=== PATIENT | female | born 1980 | race Caucasian/White ===

== ENCOUNTER 2017-10-09 09:31 | Outpatient (CLI) | payer MEDICARE ==
[2017-10-09] MEDS ORDERED: Gadobenate Dimeglumine 529 MG/1 ML (20ML VIAL) ONE (15:16)
== END 2017-10-09 09:32 | disposition home or self-care (01) ==
LOC: BICMRI 09:31
PROVIDERS: ATTEND Psychiatry & Neurology Neurology
DX: R56.9 Unspecified convulsions (principal)
CPT/HCPCS: 70553; A9579

== ENCOUNTER 2018-04-30 13:49 | Outpatient (CLI) | payer MEDICARE ==
--- NOTE | 2018-04-30 14:51 | ULT ---
BLADDER ULTRASOUND: Comparison: None. History: Pelvic pain and difficulty emptying urinary bladder. Technique: Multiplanar grayscale and color doppler images were obtained in a limited ultrasound of th e pelvis to include the urinary bladder. FINDINGS: Pre-void bladder volume is 112 ml. No significant bladder abnormality is seen. The bladder was comple tely empty after voiding. IMPRESSION: No significant bladder abnormality. POS: [facility]
--- NOTE | 2018-04-30 15:28 | ULT ---
TRANSVAGINAL PELVIC ULTRASOUND: INDICATION: History of left-sided pelvic pain with a history of hysterectomy and right oophorectomy. TECHNIQUE: Daniels scale, color flow, with spectral Doppler images were obtained of the pelvis via transvaginal maryann salazar. FINDINGS: Uterus and right ovary are surgically absent. The left ovary measures 3.3 x 2.7 x 2.3 cm. There is a bilobed cyst within the left ovary measuring 1.5 x 1.9 x 1.5 cm. The distal portion of the cyst measures 1.7 x 2.3 x 1.5 cm. There is normal milan w to the left ovary. IMPRESSION: Bilobed cyst within the left ovary. Would recommend a followup ultrasound in 6-8 weeks to document r esolution. POS: [facility]
== END 2018-04-30 13:50 | disposition home or self-care (01) ==
LOC: BICULT 13:49
PROVIDERS: ATTEND Nurse Practitioner Family
DX: E28.2 Polycystic ovarian syndrome (principal); R30.9 Painful micturition, unspecified; R30.0 Dysuria
CPT/HCPCS: 76856

== ENCOUNTER 2018-06-03 08:26 | Outpatient (CLI) | payer MEDICARE ==
[2018-06-03] MEDS ORDERED: ISOVUE-370 76%-LOCM 1 ML ONE (09:22)
--- NOTE | 2018-06-03 10:26 | CT ---
CT PELVIS WITH IV CONTRAST: Multiple axial tomograms were obtained through the pelvis with IV contrast. Oral contrast was also a dministered. INDICATION: History of left ovary cyst. Dysuria. COMPARISON: Comparison is made to prior abdomen and pelvis CT of 03/12/2017. Correlation is made to a recent pelvi c ultrasound of 04/30/2018. The recent ultrasound described a bilobed left ovarian cyst measuring 1.5 to [address] revealed a left ovarian cyst measuring up to 3 cm. FINDINGS: Portions of the kidneys are imaged and appear unremarkable and stable. No hydronephrosis. The urete rs appear normal. The urinary bladder is mildly distended and appears unremarkable. The patient is post hysterectomy. The left ovary is again identified. A small left ovarian cyst is seen measuring approximately 1.5 cm in the coronal plane. The right ovary is not identified. The visualized aorta is unremarkable. No adenopathy identified. Osseous structures unremarkable. T he sigmoid and visualized left colon unremarkable. IMPRESSION: A small left ovarian cyst measuring approximately 1.[address] pelvis otherwise unrema rkable. POS: [facility]
== END 2018-06-03 08:27 | disposition home or self-care (01) ==
LOC: BICCT 08:26
PROVIDERS: ATTEND Nurse Practitioner Family
DX: N83.202 Unspecified ovarian cyst, left side (principal); R30.9 Painful micturition, unspecified; R30.0 Dysuria; E28.2 Polycystic ovarian syndrome; R10.2 Pelvic and perineal pain
CPT/HCPCS: 72193; Q9966

== ENCOUNTER 2018-10-23 14:37 | Outpatient (CLI) | payer MEDICARE ==
[2018-10-23 16:53] LABS: Hemoglobin 13.5 g/dL (12.0-16.0); Mean Corpuscular HGB CONC 34.6 g/dL (32.0-36.0); Mean Corpuscular Hemoglobin 33.9 pg (27.0-31.0); Mean Corpuscular Volume 98.1 fL (78.0-98.0); Mean Platelet Volume 7.6 fL (7.4-10.4); Platelet Count 304 thou/uL (130-400); RBC Distribution Width 11.2 % (11.5-14.5); Red Blood Cell (RBC) Count 3.97 mill/uL (4.20-5.40); White Blood Cell (WBC) Count 9.1 thou/uL (4.8-10.8)
== END 2018-10-23 14:38 | disposition home or self-care (01) ==
LOC: LABBT 14:37
PROVIDERS: ATTEND Obstetrics & Gynecology
DX: Z01.812 Encounter for preprocedural laboratory examination (principal); N83.202 Unspecified ovarian cyst, left side
CPT/HCPCS: 85027; 86850; 86900; 86901; 93005; 93010

== ENCOUNTER 2018-10-28 08:31 | Day surgery (SDC) | payer MEDICARE ==
[2018-10-23 16:44] VITALS: BMI 32.4
--- NOTE | 2018-10-27 09:26 | HP ---
Ayde is set for outpatient surgery on 10/28. HISTORY OF PRESENT ILLNESS: Ayde is a 38-year-old white female G0, well known to me with previous robotic hysterectomy and right salpingo-oophorectomy approximately 10 years ago. She has been having a long history of left lower quadrant pain. She reports the last year it has gotten much more severe, progressively worsening, constant, sharp and stabbing in character. It will radiate to the mons pubis region. She has been requiring tramadol 50 mg twice a day without relief. She has seen her Primary Care Provider and General Surgery due to prior left inguinal hernia repair. She is also getting pain injections with Anesthesia Service with Dr. Los Ibrahim and trigger point injections, which does help some of the pain, but then it recurs about 2 weeks after and returns. As noted, she has a history of total laparoscopic hysterectomy with right salpingo-oophorectomy in the past for cervical dysplasia and right ovarian cyst. She has a history of PCOS, on metformin. She has been noted to have a persistent 3 to 4 cm left ovarian cyst with mild septation over the past year. It has been unchanged. Due to the persistence of the cyst and the patient's chronic pain issues, now she is desiring definitive surgical therapy with removal of the ovarian cyst. PAST MEDICAL HISTORY: She has spinal stenosis, onset 09/23/2018, migraine history, seizure history/epilepsy, hypertensive disorder, diabetes mellitus, hypothyroidism, chronic pelvic pain and ovarian cyst. PAST SURGICAL HISTORY: Robotic TLH with RSO, cholecystectomy in 2013, hernia repair for left-sided congenital hernia in [address] Nielson. FAMILY HISTORY: Father had hypertensive disease and [place]. Mother had hyperlipidemia, heart disease. Distant maternal aunt, diabetes and malignant breast cancer at age 55. CURRENT MEDICATIONS: 1. Alprazolam 0.5 mg tablet as needed. 2. Aspirin 81 mg daily. 3. Baclofen 10 mg b.i.d. 4. Celebrex mg daily. 5. Lisinopril 2.5 mg daily. 6. Metformin 500 mg tablet daily. 7. Pravastatin 40 mg tablet daily. 8. Sertraline 100 mg tablet daily. 9. Synthroid 125 mcg tablet daily. 10. Topamax 50 mg tablet daily. 11. Tramadol 50 b.i.d. as needed. PHYSICAL EXAMINATION: VITAL SIGNS: The patient's height is 5 feet 6 inches, weight 199, BMI 32, blood pressure 118/78, pulse 90, respirations 18, O2 saturation 96% on room air. HEENT: Within normal limits. CHEST: Clear to auscultation. HEART: Regular rate and rhythm. S1 and S2 heart sounds. No murmurs, rubs, or gallops. ABDOMEN: Inspection and palpation, there is no guarding. No masses. No rebound tenderness. Soft, nondistended. There was some left lower quadrant tenderness. PELVIC: Vulva and vagina had no lesions. Vaginal cuff was intact. Cervix was absent surgically. Uterus is surgically absent. Adnexa, no adnexal masses, but some tenderness was appreciated. ASSESSMENT: This is a 38-year-old white female with chronic pelvic pain with prior robotic total laparoscopic hysterectomy with right salpingo-oophorectomy. She is having persistent left lower quadrant pain with evidence of a left ovarian or adnexal cyst. This has been stable for many years and in fact over the past year and has noted in the past to be present. She has other chronic pelvic pain issues also. Due to the persistence of the pain and the cyst, now we have decided to proceed with robotic laparoscopic salpingo-oophorectomy. The patient is aware that her pain may persist even after removal of the left ovary and the cyst. She will require hormone replacement therapy and most likely take in oral form after discussion with her and her mother. PLAN: Plan is to proceed with robotic LSO on 10/28/2018. Risks and benefits of procedure discussed in detail. Job ID: [id number]
[2018-10-28] MEDS ORDERED: Gabapentin 300 MG CAP ONE (09:06)
[2018-10-28] MEDS ORDERED: Famotidine/PF 20 mg/2ml Vial ONE ×2 (09:07→09:08)
[2018-10-28] MEDS ORDERED: CeleCOXIB 100 MG CAP ONE ×2 (09:08→09:20)
[2018-10-28] MEDS ORDERED: Bupivacaine HCl 0.5%/Epinephrine 1:200,000/PF 30 ml Vial ONE (09:27)
[2018-10-28] MEDS ORDERED: Fentanyl 100 MCG/2 ML VIAL ONE ×2 (09:32→11:57)
[2018-10-28] MEDS ORDERED: HYDROcodone/Acetaminophen 5/325 mg Tablet ONE (14:06)
--- NOTE | 2018-10-28 15:41 | OP ---
DATE OF PROCEDURE: 10/28/2018 PREOPERATIVE DIAGNOSES: 1. A 38-year-old white female, G0, prior robotic hysterectomy and right salpingo-oophorectomy with chronic pelvic pain. 2. Persistent 3-cm left ovarian cyst. POSTOPERATIVE DIAGNOSES: 1. A 38-year-old white female, G0, prior robotic hysterectomy and right salpingo-oophorectomy with chronic pelvic pain. 2. Persistent 3-cm left ovarian cyst. 3. Pelvic adhesive disease. NEIGHBORHOOD PLANNER SURGEON: Gloria Cabrera PA-C ANESTHESIA: General endotracheal. ESTIMATED BLOOD LOSS: Less than 25 mL. COMPLICATIONS: None. COUNTS: Correct x2. ANTIBIOTICS: 2 g Ancef, on-call to OR. PATHOLOGY: Left fallopian tube and ovary. FINDINGS: 1. Left adnexal structures were basically nestled in bowel adhesions from some small and large bowel on the patient's left side of the pelvis. These were all some filmy adhesions from previous surgeries. 2. The left fallopian tube was normal in appearance, and the left ovary was approximately 3 to 4 cm in size with what appeared to be a 1.5-cm simple cyst that was ruptured with clear fluid. 3. Otherwise, the patient was status post prior robotic hysterectomy and RSO. She had a few omental adhesions underneath the umbilicus, which did not appear incarcerated. The bowel adhesions did not appear to be strangulated or narrowed causing any sort of obstructive pattern. DISPOSITION: Recovery room, stable. DESCRIPTION OF PROCEDURE: The patient previously received informed consent in regard to surgery. Taken back to the operating room, where she received a general endotracheal anesthetic agent without complications. Placed in a dorsal lithotomy position with use of Nacho stirrups. A sponge stick was placed in the vagina along with Lombardo catheter. Attention was then turned to the abdomen. Perspective trocar sites were infiltrated with 0.5% Marcaine with epinephrine. An infraumbilical incision was made, and then Veress needle was attempted to be placed intraperitoneally x3. There was an elevated reading over 15 mmHg pressure on each insert and felt that there may be adhesions in the umbilicus region. We, therefore, had 2 Allis clamps grasped the fascia. The fascia was incised approximately a centimeter. There was quite a bit of grisly texture here again consistent with adhesions, and I was unable to get into the peritoneal cavity. I was just under the fascia, which allowed for me to pull the fascial wall up towards me, and then we went above the umbilicus approximately 5 cm. A midline incision was made approximately 10 mm. Veress needle was entered here with elevation of the anterior abdominal wall, and the patient's pressure was noted to be less than 5, and the abdomen was insufflated to the patient's pressure of 15 with approximately 5 L of carbon dioxide gas. A size 11-mm trocar was then placed through this incision site, and then the robotic laparoscope was introduced through the trocar sleeve confirming proper entry. We then noted where we initially had tried to go in, in the fascia, there were some omental adhesions in this area explaining the inability to enter in with visualization on the first Veress needle insert. An 8-mm trocar robotic was placed bilaterally, right and left side, under direct visualization, and then we placed a 5-mm right upper quadrant insurance administrative assistant port. The patient was placed in Trendelenburg position, and then the robot was docked in usual fashion. Then, we did explore into the pelvis with the bowel adhesions. They were taken down both sharply and bluntly with use of monopolar scissors and bipolar fenestrated cautery, and my insurance administrative assistant with an atraumatic grasper, we did layering of the filmy adhesions mobilizing the bowel that was pretty much adherent to the left pelvic sidewall. To be continued, we atraumatically went through the adhesions. This allowed for mobilization of the colon in sigmoid region; therefore, finding the left adnexal structure just tucked underneath these adhesions. My insurance administrative assistant grasped the identifiable fallopian tube and pulled this medially. This allowed for me to dissect the filmy adhesions from the sigmoid colon off the ovary both sharply and bluntly freeing up the left ovary. We then took a part of the fallopian tube off with monopolar scissors and brought that down into pelvic cul-de-sac freeing up more of the left IP ligament well from the pelvic sidewall. My insurance administrative assistant then retracted the bowel laterally away from the IP ligament, and then hugging up close to the ovarian specimen and grasping the ovary medially, I was able to put the bipolar fenestrated hugging up close to the ovary and the IP ligament, cauterized this x2, and then excised with monopolar scissors removing the adnexal structures. The pelvis then again was inspected, and hemostasis was confirmed. We then undocked the robot. We got an endobag placed through the supraumbilical port and then switched the 8-mm camera to the patient's left lower quadrant scope. The endobag was then utilized to scoop up the tube and ovary, and these were suture closed and secured. I then closed the fascial defect that I made in the umbilicus under pressure which allowed for better grasping the fascia, and 2 [id number] sutures were placed in this closing the defect. The specimen was then secured in the bag, and it was easily pulled out through the 11-mm defect in the supraumbilical region. Once this was done, then the excess carbon dioxide gas had been released from the abdomen. Hemostasis again was confirmed. The trocar sites were closed with 4-0 Monocryl and Dermabond. Sponge stick was removed. The patient was awakened from anesthesia and transferred to recovery room in stable condition. Job ID: [id number]
[2018-10-28] MEDS ORDERED: Glycopyrrolate 0.2 MG/ML 5 ML SYRINGE ONE (17:08)
[2018-10-28] MEDS ORDERED: Ondansetron PF 4 MG/2 ML Vial ONE (17:08)
[2018-10-28] MEDS ORDERED: Rocuronium Bromide 10 MG/ML (10ML VIAL) ONE (17:08)
[2018-10-28] MEDS ORDERED: Ketorolac Tromethamine 30 MG/ML VIAL ONE (17:08)
[2018-10-28] MEDS ORDERED: PHENYLEPHRINE-NS 100 MCG/ML 10 ML SYRINGE ONE (17:08)
[2018-10-28] MEDS ORDERED: PROPOFOL 200 MG/20 ML VIAL ONE (17:08)
[2018-10-28] MEDS ORDERED: Dexamethasone 20 MG/5 ML VIAL ONE (17:08)
[2018-10-28] MEDS ORDERED: Lidocaine 1% PF 5 ML VIAL ONE (17:08)
== END 2018-10-28 14:15 | disposition home or self-care (01) ==
LOC: SDC 08:31
PROVIDERS: ATTEND Obstetrics & Gynecology
PROC: 0UT14ZZ Resection of Left Ovary, Percutaneous Endoscopic Approach (ICD-10-PCS; principal; 2018-10-28)
PROC: 0UT64ZZ Resection of Left Fallopian Tube, Percutaneous Endoscopic Approach (ICD-10-PCS; 2018-10-28)
DX: N83.02 Follicular cyst of left ovary (principal); N83.8 Other noninflammatory disorders of ovary, fallopian tube and broad ligament; N73.6 Female pelvic peritoneal adhesions (postinfective); G89.29 Other chronic pain; R10.2 Pelvic and perineal pain; E11.9 Type 2 diabetes mellitus without complications; E03.9 Hypothyroidism, unspecified; I10 Essential (primary) hypertension; F41.9 Anxiety disorder, unspecified; F32.9 Major depressive disorder, single episode, unspecified; E78.5 Hyperlipidemia, unspecified; G40.909 Epilepsy, unspecified, not intractable, without status epilepticus; G43.909 Migraine, unspecified, not intractable, without status migrainosus; Z90.710 Acquired absence of both cervix and uterus; Z90.49 Acquired absence of other specified parts of digestive tract; Z79.82 Long term (current) use of aspirin; Z79.899 Other long term (current) drug therapy; Z79.84 Long term (current) use of oral hypoglycemic drugs
CPT/HCPCS: 88305; J0670; J0690; J1100; J1885; J2001; J2405; J2704; J3010; S0028

== ENCOUNTER 2020-03-06 17:05 | Emergency (ER) | payer MEDICARE ==
[2020-03-06 18:28] LABS: Bilirubin Negative (Negative); Blood, Urine Trace (Negative); Clarity Clear (Clear); Glucose, Urine (Dipstick) Normal (Negative); Ketone, Urine Negative (Negative); Leukocyte Negative Leu/uL (Negative); Nitrite Negative (Negative); Protein, Urine (Dipstick) Negative (Neg-Trace); RBC/HPF 0-3 HPF (0-3); Specific Gravity, Urine 1.006 (1.002-1.036); Urobilinogen Normal mg/dL (Less than 2); WBC/HPF 0-3 HPF (0-3); pH, Urine 6.5 (5.0-9.0)
[2020-03-06 18:29] LABS: Bacteria/HPF 1+ HPF (None Seen)
== END 2020-03-06 19:19 | disposition home or self-care (01) ==
LOC: ERS 17:05
DX: B37.2 Candidiasis of skin and nail (principal); E03.9 Hypothyroidism, unspecified; Z79.82 Long term (current) use of aspirin; Z79.899 Other long term (current) drug therapy
CPT/HCPCS: 36416; 81001; 87086; 99283

== ENCOUNTER 2020-06-02 11:12 | Outpatient (CLI) | payer MEDICARE | END 2020-06-02 11:13 | disposition home or self-care (01) | LOC: CT 11:12 | PROVIDERS: ATTEND Psychiatry & Neurology Neurology | DX: G40.909 Epilepsy, unspecified, not intractable, without status epilepticus (principal) | CPT/HCPCS: 70450; 95816 ==

== ENCOUNTER 2020-12-26 12:23 | Outpatient (CLI) | payer MEDICARE | END 2020-12-26 12:24 | disposition home or self-care (01) | LOC: BICMAMMO 12:23 | PROVIDERS: ATTEND Obstetrics & Gynecology | DX: Z12.31 Encounter for screening mammogram for malignant neoplasm of breast (principal); Z80.3 Family history of malignant neoplasm of breast | CPT/HCPCS: 77063; 77067 ==

== ENCOUNTER 2021-01-12 10:19 | Outpatient (CLI) | payer MEDICARE | END 2021-01-12 10:20 | disposition home or self-care (01) | LOC: BICMRI 10:19 | PROVIDERS: ATTEND Orthopaedic Surgery | DX: M23.92 Unspecified internal derangement of left knee (principal) ==

== ENCOUNTER 2021-07-06 11:07 | Emergency (ER) | payer MEDICARE ==
[2021-07-06 12:15] LABS: Hemoglobin 14.7 g/dL (12.0-16.0); Mean Corpuscular HGB CONC 34.1 g/dL (32.0-36.0); Mean Corpuscular Hemoglobin 35.2 pg (27.0-31.0); Mean Platelet Volume 7.6 fL (7.4-10.4); Platelet Count 272 thou/uL (130-400); RBC Distribution Width 11.9 % (11.5-14.5); Red Blood Cell (RBC) Count 4.17 mill/uL (4.20-5.40); White Blood Cell (WBC) Count 17.2 thou/uL (4.8-10.8)
[2021-07-06] MEDS ORDERED: Morphine 4 MG/ML VIAL ONE (12:29)
[2021-07-06] MEDS ORDERED: Ondansetron PF 4 MG/2 ML Vial ONE (12:29)
[2021-07-06 12:45] LABS: ALT (SGPT) 19 U/L (8-55); AST (SGOT) 19 U/L (5-34); Albumin 3.9 g/dL (3.5-5.0); Alkaline Phosphatase 65 U/L (40-110); Anion Gap 19 mmol/L (10-20); BUN (Urea Nitrogen) 19 mg/dL (7.0-18.7); Band 1 % (5-11); Bilirubin, Total 0.3 mg/dL (0.2-1.2); Calc. Creatinine Clearance 0 mL/min (70-130); Calcium 9.4 mg/dL (7.8-10.44); Carbon Dioxide 15 mmol/L (22-29); Chloride 107 mmol/L (98-107); Globulin 3.5 g/dL (2.4-3.5); Glucose 119 mg/dL (70-105); Lipase 43 U/L (8-78); Lymphocytes 30 % (21-51); MDiff Complete? YES; Monocytes 5 % (0-10); Neutrophil 62 % (42-75); Platelet Morphology Comment Appears Adequate; Potassium 4.8 mmol/L (3.5-5.1); Protein, Total 7.4 g/dL (6.0-8.3); RBC Morphology Normal; Sodium 136 mmol/L (136-145)
[2021-07-06 13:37] LABS: Bilirubin Negative (Negative); Blood, Urine Negative (Negative); Clarity Clear (Clear); Glucose, Urine (Dipstick) Normal (Negative); Ketone, Urine Negative (Negative); Leukocyte Negative Leu/uL (Negative); Nitrite Negative (Negative); Protein, Urine (Dipstick) Negative (Neg-Trace); Specific Gravity, Urine 1.012 (1.002-1.036); Urobilinogen Normal mg/dL (Less than 2); pH, Urine 5.5 (5.0-9.0)
[2021-07-06] MEDS ORDERED: Ketorolac Tromethamine 30 MG/ML VIAL ONE (14:25)
== END 2021-07-06 14:58 | disposition home or self-care (01) ==
LOC: ERS 11:07
DX: N13.2 Hydronephrosis with renal and ureteral calculous obstruction (principal); E03.9 Hypothyroidism, unspecified; G43.909 Migraine, unspecified, not intractable, without status migrainosus; Z79.899 Other long term (current) drug therapy; Z79.84 Long term (current) use of oral hypoglycemic drugs
CPT/HCPCS: 36415; 74176; 80053; 81003; 83690; 85025; 87086; 94760; 96374; 96375; J1885; J2270; J2405

== ENCOUNTER 2021-07-12 09:59 | Observation (INO) | payer MEDICARE ==
[2021-07-12] MEDS ORDERED: Ondansetron PF 4 MG/2 ML Vial ONE (10:58)
[2021-07-12] MEDS ORDERED: Morphine 4 MG/ML VIAL ONE (10:58)
[2021-07-12] MEDS ORDERED: Ketorolac Tromethamine 30 MG/ML VIAL ONE (10:58)
[2021-07-12 11:05] LABS: Bilirubin Negative (Negative); Blood, Urine Negative (Negative); Clarity Clear (Clear); Glucose, Urine (Dipstick) Normal (Negative); Ketone, Urine Negative (Negative); Leukocyte Negative Leu/uL (Negative); Nitrite Negative (Negative); Protein, Urine (Dipstick) Negative (Neg-Trace); Specific Gravity, Urine 1.016 (1.002-1.036); Urobilinogen Normal mg/dL (Less than 2)
[2021-07-12 11:26] LABS: #Basophils 0.1 thou/uL (0.0-0.2); #Eosinphils 0.2 thou/uL (0.0-0.7); #Lymphocytes 3.7 thou/uL (1.20-3.40); #Monocytes 0.5 thou/uL (0.11-0.59); #Neutrophils 8.6 thou/uL (1.40-6.50); %Basophils 1.1 % (0.0-1.0); %Eosinophils 1.2 % (0.0-10.0); %Monocytes 3.7 % (0.0-10.0); Hemoglobin 13.1 g/dL (12.0-16.0); Mean Corpuscular HGB CONC 33.6 g/dL (32.0-36.0); Mean Corpuscular Hemoglobin 34.2 pg (27.0-31.0); Mean Platelet Volume 7.1 fL (7.4-10.4); Platelet Count 292 thou/uL (130-400); RBC Distribution Width 11.8 % (11.5-14.5); Red Blood Cell (RBC) Count 3.83 mill/uL (4.20-5.40)
[2021-07-12 11:47] LABS: ALT (SGPT) 18 U/L (8-55); AST (SGOT) 12 U/L (5-34); Albumin 3.7 g/dL (3.5-5.0); Alkaline Phosphatase 62 U/L (40-110); Anion Gap 14 mmol/L (10-20); BUN (Urea Nitrogen) 15 mg/dL (7.0-18.7); Bilirubin, Total 0.3 mg/dL (0.2-1.2); Calc. Creatinine Clearance 0 mL/min (70-130); Calcium 9.1 mg/dL (7.8-10.44); Carbon Dioxide 21 mmol/L (22-29); Chloride 108 mmol/L (98-107); Globulin 3.2 g/dL (2.4-3.5); Glucose 186 mg/dL (70-105); Lipase 54 U/L (8-78); Potassium 3.7 mmol/L (3.5-5.1); Protein, Total 6.9 g/dL (6.0-8.3); Sodium 139 mmol/L (136-145)
[2021-07-12] MEDS ORDERED: diphenhydrAMINE 50 MG/ML VIAL IVP PRN (12:01)
[2021-07-12] MEDS ORDERED: Zolpidem Tartrate 5 MG TAB PO PRN (12:01)
[2021-07-12] MEDS ORDERED: Morphine 4 MG/ML VIAL SLOW IVP PRN (12:01)
[2021-07-12] MEDS ORDERED: Oxybutynin 5 MG TAB PO PRN (12:01)
[2021-07-12] MEDS ORDERED: hydrALAZINE 20 MG/ML VIAL SLOW IVP PRN (12:01)
[2021-07-12 13:26] LABS: SARS-CoV-2 NAA Rapid Test Not Detected (NotDetected)
[2021-07-12 13:37] VITALS: BMI 31.6
[2021-07-12] MEDS: HYDROcodone/Acetaminophen 5/325 mg Tablet PO PRN (14:09)
[2021-07-12] MEDS: Sodium Chloride 0.9% 1,000 ML IV SCH ×2 (14:12→20:59)
[2021-07-12] MEDS ORDERED: Iopamidol 30 ML ONE (18:34)
[2021-07-12] MEDS: Ketorolac Tromethamine 30 MG/ML VIAL IVP SCH (18:42)
[2021-07-12] MEDS ORDERED: Levofloxacin 500 mg/D5W 100 ml Premix Bag ONE (18:48)
[2021-07-12] MEDS ORDERED: PROPOFOL 200 MG/20 ML VIAL ONE (18:58)
[2021-07-12] MEDS ORDERED: Lidocaine 1% PF 5 ML VIAL ONE (18:58)
[2021-07-12] MEDS ORDERED: Ondansetron HCl/PF 4 MG/2 ML Vial IVP PRN (19:28)
[2021-07-12] MEDS ORDERED: Promethazine HCl 25 MG/ML VIAL IM PRN (19:28)
[2021-07-12] MEDS ORDERED: Promethazine HCl 25 MG/ML VIAL IVPB PRN (19:28)
[2021-07-12] MEDS ORDERED: Fentanyl 100 MCG/2 ML VIAL ONE (19:31)
[2021-07-12] MEDS ORDERED: ALPRAZolam 0.5 MG TAB PO PRN (19:33)
[2021-07-12] MEDS: Topiramate 100 MG TAB PO SCH (20:53)
[2021-07-12] MEDS: Baclofen 10 MG TAB PO SCH (20:53)
[2021-07-12] MEDS: Famotidine/PF 20 mg/2ml Vial SLOW IVP SCH (20:54)
[2021-07-12] MEDS ORDERED: Atorvastatin Calcium 10 MG TAB PO SCH (21:00)
[2021-07-13] MEDS: Ketorolac Tromethamine 30 MG/ML VIAL IVP SCH ×2 (00:23→05:52)
[2021-07-13] MEDS ORDERED: Levothyroxine Sodium 125 MCG TAB PO SCH (06:00)
[2021-07-13] MEDS ORDERED: metFORMIN 500 MG TAB PO SCH (08:00)
[2021-07-13] MEDS: Baclofen 10 MG TAB PO SCH (08:19)
[2021-07-13] MEDS: Sodium Chloride 0.9% 1,000 ML IV SCH (08:19)
[2021-07-13] MEDS: Famotidine/PF 20 mg/2ml Vial SLOW IVP SCH (08:19)
[2021-07-13] MEDS: Lisinopril 2.5 MG TAB PO SCH ×2 (08:19→08:40)
[2021-07-13] MEDS: Topiramate 100 MG TAB PO SCH (08:20)
[2021-07-13] MEDS: HYDROcodone/Acetaminophen 5/325 mg Tablet PO PRN (08:40)
[2021-07-13 08:43] VITALS: BP 117/77; TEMP 97.9
[2021-07-13] MEDS ORDERED: Tamsulosin HCl 0.4 MG CAP PO SCH (09:00)
[2021-07-13] MEDS ORDERED: Aspirin 81 mg Enteric Coated Tablet PO SCH (09:00)
[2021-07-17 17:38] LABS: CA Oxalate Dihydrate 60 % (.); CA Oxalate Monohydrate 30 % (.); Color Tan (.); Stone Weight 18 mg (.)
== END 2021-07-13 09:58 | disposition home or self-care (01) ==
LOC: ERS 09:59 → SURG A 12:07
PROVIDERS: ADMIT Urology; ATTEND Urology
PROC: 0TC78ZZ Extirpation of Matter from Left Ureter, Via Natural or Artificial Opening Endoscopic (ICD-10-PCS; principal; 2021-07-12)
PROC: 0T778DZ Dilation of Left Ureter with Intraluminal Device, Via Natural or Artificial Opening Endoscopic (ICD-10-PCS; 2021-07-12)
DX: N13.2 Hydronephrosis with renal and ureteral calculous obstruction (principal); N13.4 Hydroureter; E03.9 Hypothyroidism, unspecified; G40.909 Epilepsy, unspecified, not intractable, without status epilepticus; Z79.82 Long term (current) use of aspirin; Z79.84 Long term (current) use of oral hypoglycemic drugs; Z79.890 Hormone replacement therapy; Z79.899 Other long term (current) drug therapy; Z88.0 Allergy status to penicillin; Z20.822 Contact with and (suspected) exposure to COVID-19
CPT/HCPCS: 52356; 71045; 74176; 74420; 81003; 82365; 83690; 93005; 96374; 96375; 99285; C2617; U0002; 36415; 80053; 84443; 85025; 88300; 96376; G0378; J1885; J1956; J2270; J2405; J2704; J3010; J7050; Q9967; S0028

== ENCOUNTER 2021-08-09 12:29 | Outpatient (CLI) | payer MEDICARE | END 2021-08-09 12:30 | disposition home or self-care (01) | LOC: BICULT 12:29 | PROVIDERS: ATTEND Urology | DX: N20.0 Calculus of kidney (principal) | CPT/HCPCS: 76770 ==

== ENCOUNTER 2021-08-25 09:59 | Outpatient (CLI) | payer MEDICARE ==
[2021-08-25 10:46] LABS: Estimated GFR-MDRD - POC Greater than 90
== END 2021-08-25 10:00 | disposition home or self-care (01) ==
LOC: BICCT 09:59
PROVIDERS: ATTEND Urology
DX: R10.32 Left lower quadrant pain (principal); N20.0 Calculus of kidney
CPT/HCPCS: 74177; 82565

== ENCOUNTER 2021-09-11 13:45 | Outpatient (CLI) | payer MEDICARE ==
[2021-09-11] MEDS ORDERED: Magnevist 469MG/ML 20 ML VIAL ONE (15:57)
== END 2021-09-11 13:46 | disposition home or self-care (01) ==
LOC: BICMRI 13:45
PROVIDERS: ATTEND Nurse Practitioner Family
DX: R10.32 Left lower quadrant pain (principal); Z87.442 Personal history of urinary calculi; E28.2 Polycystic ovarian syndrome; J84.10 Pulmonary fibrosis, unspecified
CPT/HCPCS: 74183; A9579

== ENCOUNTER 2021-11-23 12:55 | Outpatient (CLI) | payer MEDICARE | END 2021-11-23 12:56 | disposition home or self-care (01) | LOC: BICCT 12:55 | PROVIDERS: ATTEND Urology | DX: N20.0 Calculus of kidney (principal) | CPT/HCPCS: 74176; 81001; 87086 ==

== ENCOUNTER 2021-12-26 09:15 | Outpatient (CLI) | payer MEDICARE ==
[2021-12-26 11:37] LABS: Bilirubin Neg (Negative); Blood, Urine Negative (Negative); Clarity Sl. Cloudy (Clear); Glucose, Urine (Dipstick) Normal (Negative); Ketone, Urine Negative (Negative); Leukocyte 25 (Negative); Nitrite Negative (Negative); Protein, Urine (Dipstick) Negative (Neg-Trace); Specific Gravity, Urine 1.015 (1.005-1.030); Urobilinogen Normal mg/dL (Less than 2); pH, Urine 6.5 (5.0-9.0)
[2021-12-26 11:52] LABS: Hemoglobin 14.2 g/dL (12.0-15.5); Mean Corpuscular Hemoglobin 34.3 pg (27.0-33.0); Platelet Count 311 10x3/uL (150-450); RBC Distribution Width 12.5 % (11.5-14.5); Red Blood Cell (RBC) Count 4.14 10x6/uL (3.90-5.03); White Blood Cell (WBC) Count 9.9 10x3/uL (3.5-10.5)
[2021-12-26 11:54] LABS: RBC/HPF 0-3 HPF (0-3)
[2021-12-26 11:55] LABS: Bacteria/HPF 2+ HPF (None Seen); Mucous/LPF 1+ LPF (<2+); Oval Fat Bodies/HPF Rare HPF (None Seen)
[2021-12-26 12:06] LABS: INR-International Normal Ratio 0.9; PTT 26.9 sec (22.0-33.0); Prothrombin Time 10.2 sec (9.5-12.1)
[2021-12-26 12:17] LABS: Anion Gap 15 mmol/L (10-20); BUN (Urea Nitrogen) 18 mg/dL (7.0-18.7); Calc. Creatinine Clearance 0 mL/min (70-130); Calcium 9.7 mg/dL (7.8-10.44); Carbon Dioxide 21 mmol/L (22-29); Chloride 108 mmol/L (98-107); Estimated GFR 80; Glucose 199 mg/dL (70-105); Sodium 140 mmol/L (136-145)
== END 2021-12-26 09:16 | disposition home or self-care (01) ==
LOC: LABBT 09:15
PROVIDERS: ATTEND Urology
DX: Z01.818 Encounter for other preprocedural examination (principal); N20.0 Calculus of kidney
CPT/HCPCS: 80048; 81001; 85027; 85610; 85730; 87086; 93005; 93010

== ENCOUNTER 2021-12-29 08:52 | Day surgery (SDC) | payer MEDICARE ==
[2021-12-28 11:05] VITALS: BMI 31.6
[2021-12-29] MEDS ORDERED: Levofloxacin 500 mg/D5W 100 ml Premix Bag ONE (09:58)
[2021-12-29] MEDS ORDERED: Midazolam HCl 2 mg/2 ml Vial ONE (11:08)
[2021-12-29] MEDS ORDERED: Ketamine 50 MG/ML (10ML VIAL) ONE (11:08)
[2021-12-29] MEDS ORDERED: fentaNYL Citrate/PF 100 MCG/2 ML SYRINGE ONE (11:08)
[2021-12-29] MEDS ORDERED: SUGAMMADEX SODIUM 200 MG/2 ML VIAL ONE (11:09)
[2021-12-29] MEDS ORDERED: PROPOFOL 200 MG/20 ML VIAL ONE (11:20)
[2021-12-29] MEDS ORDERED: Rocuronium Bromide 10 MG/ML (10ML VIAL) ONE (11:20)
[2021-12-29] MEDS ORDERED: ePHEDrine 50 MG/ML VIAL ONE (11:20)
[2021-12-29] MEDS ORDERED: PHENYLEPHRINE-NS 100 MCG/ML 10 ML SYRINGE ONE (11:20)
[2021-12-29] MEDS ORDERED: Ondansetron PF 4 MG/2 ML Vial ONE (11:20)
[2021-12-29] MEDS ORDERED: Dexamethasone 20 MG/5 ML VIAL ONE (11:20)
[2021-12-29] MEDS ORDERED: B & O 30 MG SUPP ONE (11:36)
[2021-12-29] MEDS ORDERED: FENTANYL 50 MCG/ML VIAL 50 MCG/ML VIAL ONE (12:29)
[2021-12-29] MEDS ORDERED: HYDROcodone/Acetaminophen 5/325 mg Tablet ONE (13:33)
== END 2021-12-29 14:13 | disposition home or self-care (01) ==
LOC: SDC 08:52
PROVIDERS: ATTEND Urology
PROC: 0TC38ZZ Extirpation of Matter from Right Kidney Pelvis, Via Natural or Artificial Opening Endoscopic (ICD-10-PCS; principal; 2021-12-29)
PROC: 0T768DZ Dilation of Right Ureter with Intraluminal Device, Via Natural or Artificial Opening Endoscopic (ICD-10-PCS; 2021-12-29)
DX: N20.0 Calculus of kidney (principal); E11.9 Type 2 diabetes mellitus without complications; E28.2 Polycystic ovarian syndrome; E06.3 Autoimmune thyroiditis; E78.5 Hyperlipidemia, unspecified; I10 Essential (primary) hypertension; E03.9 Hypothyroidism, unspecified; Z79.82 Long term (current) use of aspirin; Z79.84 Long term (current) use of oral hypoglycemic drugs; Z79.890 Hormone replacement therapy; Z79.899 Other long term (current) drug therapy; Z88.0 Allergy status to penicillin; Z88.5 Allergy status to narcotic agent
CPT/HCPCS: 52356; 74420; 82365; C1713; C1769; C2617; J3010; 88300; J1100; J1956; J2250; J2405; J2704; J3490

== ENCOUNTER 2022-05-10 14:08 | Outpatient (CLI) | payer MEDICARE | END 2022-05-10 14:09 | disposition home or self-care (01) | LOC: BICMAMMO 14:08 | PROVIDERS: ATTEND Obstetrics & Gynecology | DX: Z12.31 Encounter for screening mammogram for malignant neoplasm of breast (principal); Z80.3 Family history of malignant neoplasm of breast | CPT/HCPCS: 77063; 77067 ==

== ENCOUNTER 2023-04-30 08:54 | Outpatient (CLI) | payer MEDICARE ==
[2023-04-30 10:06] LABS: #Basophils 0.1 10x3/uL (0.0-0.2); #Eosinphils 0.1 10x3/uL (0.0-0.5); #Monocytes 0.4 10x3/uL (0.0-1.1); #Neutrophils 2.6 10x3/uL (1.5-8.4); %Basophils 1.4 % (0.0-2.0); %Eosinophils 1.7 % (0.0-6.0); %Monocytes 5.7 % (0.0-10.0); %Neutrophils 34.1 % (40.0-75.0); Anion Gap 15 mmol/L (10-20); BUN (Urea Nitrogen) 7 mg/dL (7.0-18.7); Calc. Creatinine Clearance 0 mL/min (70-130); Calcium 9.7 mg/dL (7.8-10.44); Carbon Dioxide 24 mmol/L (22-29); Chloride 107 mmol/L (98-107); Estimated GFR 90; Glucose 125 mg/dL (70-105); Hematocrit 40.4 % (34.9-44.5); Hemoglobin 13.9 g/dL (12.0-15.5); Mean Corpuscular HGB CONC 34.4 g/dL (32.0-36.0); Mean Corpuscular Hemoglobin 32.5 pg (27.0-33.0); Mean Corpuscular Volume 94.4 fl (81.6-98.3); Mean Platelet Volume 9.8 fl (7.4-10.4); Platelet Count 333 10x3/uL (150-450); Potassium 3.9 mmol/L (3.5-5.1); RBC Distribution Width 12.5 % (11.5-14.5); Red Blood Cell (RBC) Count 4.28 10x6/uL (3.90-5.03); Sodium 142 mmol/L (136-145); White Blood Cell (WBC) Count 7.7 10x3/uL (3.5-10.5)
== END 2023-04-30 08:55 | disposition home or self-care (01) ==
LOC: LABBT 08:54
PROVIDERS: ATTEND Surgery
DX: Z01.818 Encounter for other preprocedural examination (principal); K43.9 Ventral hernia without obstruction or gangrene
CPT/HCPCS: 80048; 85025; 93005; 93010

== ENCOUNTER 2023-05-07 06:09 | Day surgery (SDC) | payer MEDICARE ==
[2023-05-07] MEDS ORDERED: EPINEPHrine 1 MG/ML VIAL ONE (06:49)
[2023-05-07] MEDS ORDERED: Bupivacaine 0.25% HCL 30 ML VIAL ONE (06:49)
[2023-05-07] MEDS ORDERED: fentaNYL PF 100 MCG/2 ML SYRINGE ONE ×2 (07:02→08:14)
[2023-05-07] MEDS ORDERED: Rocuronium Bromide 10 MG/ML (10ML VIAL) ONE (07:03)
[2023-05-07] MEDS ORDERED: Lidocaine 1% PF 5 ML VIAL ONE (07:03)
[2023-05-07] MEDS ORDERED: PROPOFOL 40 ML ONE (07:03)
[2023-05-07] MEDS ORDERED: CEFAZOLIN 2 GM VIAL ONE (07:43)
[2023-05-07] MEDS ORDERED: Sodium Chloride 0.9% 100 ML ONE ×2 (07:43→08:24)
[2023-05-07] MEDS ORDERED: Midazolam HCl 2 mg/2 ml Vial ONE (07:51)
[2023-05-07] MEDS ORDERED: Dexamethasone 20 MG/5 ML VIAL ONE (08:03)
[2023-05-07] MEDS ORDERED: Phenylephrine 10 MG/ML VIAL ONE (08:04)
[2023-05-07] MEDS ORDERED: ePHEDrine Sulfate 50 MG/10 ML VIAL ONE (08:06)
[2023-05-07] MEDS ORDERED: Esmolol 100 MG/10 ML VIAL ONE (08:17)
[2023-05-07] MEDS ORDERED: Labetalol HCl 100 MG/20 ML VIAL ONE (08:23)
[2023-05-07] MEDS ORDERED: Dexmedetomidine 200 MCG/2 ML VIAL ONE (08:24)
[2023-05-07] MEDS ORDERED: Glycopyrrolate 0.2 MG/ML 5 ML SYRINGE ONE (08:42)
[2023-05-07] MEDS ORDERED: Ondansetron PF 4 MG/2 ML Vial ONE (08:59)
[2023-05-07] MEDS ORDERED: SUGAMMADEX SODIUM 200 MG/2 ML VIAL ONE (09:00)
[2023-05-07] MEDS ORDERED: fentaNYL 50 mcg/mL 1 mL Vial ONE ×3 (09:33→10:05)
[2023-05-07] MEDS ORDERED: Ketorolac Tromethamine 30 MG (1 mL) VIAL ONE (09:43)
[2023-05-07] MEDS ORDERED: HYDROcodone/Acetaminophen 5/325 mg Tablet ONE (12:50)
== END 2023-05-07 14:15 | disposition home or self-care (01) ==
LOC: SDC 06:09
PROVIDERS: ATTEND Surgery
PROC: 0WUF4JZ Supplement Abdominal Wall with Synthetic Substitute, Percutaneous Endoscopic Approach (ICD-10-PCS; principal; 2023-05-07)
DX: K43.9 Ventral hernia without obstruction or gangrene (principal); E78.00 Pure hypercholesterolemia, unspecified; E06.3 Autoimmune thyroiditis; K76.0 Fatty (change of) liver, not elsewhere classified; I10 Essential (primary) hypertension; M54.9 Dorsalgia, unspecified; G89.29 Other chronic pain; G43.909 Migraine, unspecified, not intractable, without status migrainosus; F41.9 Anxiety disorder, unspecified; F32.A Depression, unspecified; Z90.89 Acquired absence of other organs; Z90.710 Acquired absence of both cervix and uterus; Z98.890 Other specified postprocedural states; Z88.0 Allergy status to penicillin; Z88.8 Allergy status to other drugs, medicaments and biological substances; Z88.5 Allergy status to narcotic agent; Z79.899 Other long term (current) drug therapy
CPT/HCPCS: 49593; 93005; J0171; J3010; 93010; A4314; C1781; J0665; J1100; J1885; J2250; J2371; J2405; J2704; J3490

== ENCOUNTER 2024-12-04 08:51 | Outpatient (CLI) | payer MEDICARE ==
[2024-12-04] MEDS ORDERED: Iopamidol 370 76% 100 ML VIAL ONE (13:43)
== END 2024-12-04 08:52 | disposition home or self-care (01) ==
LOC: CT 08:51
PROVIDERS: ATTEND Surgery
DX: K43.2 Incisional hernia without obstruction or gangrene (principal); L90.5 Scar conditions and fibrosis of skin
CPT/HCPCS: 74177; Q9967